=== PATIENT | female | born 1980 | race Two or more races ===

== ENCOUNTER 2023-11-27 20:25 | Inpatient (IN) | payer BC, MEDICAID ==
[~2023-11-27] VITALS: Ht 157.5 cm; Wt 87.5 kg
[~2023-11-27 20:25] MED LIST: CEPH500C2 PO
[2023-11-27] MEDS ORDERED: BUPIVACAINE 0.5 % PF 150 MG/30 ML VIAL ONE (21:00)
[2023-11-27] MEDS ORDERED: MIDAZOLAM HCL 2 MG/2ML VIAL ONE (21:00)
[2023-11-27] MEDS ORDERED: FENTANYL PF 100MCG/2ML AMPUL ONE ×2 (21:00→22:59)
[2023-11-27 21:06] LABS: BASOPHILS % (AUTO) 0.3 % (0.0-2.0); EOSINOPHILS # (AUTO) 0.2 K/uL (0.0-0.7); HEMATOCRIT 31 % (33-45); HEMOGLOBIN 10.5 g/dL (11.5-14.8); LYMPHOCYTES # (AUTO) 2.2 K/uL (0.8-4.8); MEAN CORPUSCULAR HEMOGLOBIN 28 PG (26.0-33.0); MEAN CORPUSCULAR HGB CONC 34 g/dl (31.0-36.0); MEAN CORPUSCULAR VOLUME 84 fL (82-100); MONOCYTES # (AUTO) 0.5 K/uL (0.1-1.30); MONOCYTES % (AUTO) 5.9 % (2.0-12.0); NEUTROPHILS # (AUTO) 5.3 K/uL (1.8-8.9); NEUTROPHILS % (AUTO) 64.8 % (43.0-81.0); PLATELET COUNT (AUTO) 305 K/uL (150-450); RED BLOOD CELL COUNT(AUTO) 3.71 MIL/uL (4.0-5.2); RED CELL DISTRIBUTION WIDTH 14.2 % (11.5-15.0); WHITE BLOOD COUNT (AUTO) 8.2 K/uL (4.3-11.0)
[2023-11-27 21:14] LABS: CALCIUM, SERUM 9.4 mg/dL (8.5-10.1); CREATININE 0.6 mg/dL (0.6-1.3); POTASSIUM 3.3 mmol/L (3.5-5.1)
[2023-11-27 21:18] LABS: INR 0.92 (0.91-1.10); PARTIAL THROMBOPLASTIN TIME 28.1 SEC (24.3-34.3); PROTHROMBIN TIME 9.8 SECS (9.2-11.1)
[2023-11-27] MEDS: IV NS 0.9% 1,000 ML BAG IV ONE (21:18)
[2023-11-27] MEDS ORDERED: FAMOTIDINE/PF INJ 20 MG/2 ML VIAL IV ONE (21:19)
[2023-11-27 21:27] LABS: BILIRUBIN,DIRECT 0.1 mg/dL (0.0-0.2); BILIRUBIN,TOTAL 0.2 mg/dL (0.2-1.0)
[2023-11-27] MEDS ORDERED: SODIUM BICARBONATE 5 MEQ/10 ML DISP.SYRIN IV ONE (21:28)
[2023-11-27] MEDS ORDERED: SODIUM BICARBONATE 5 ML VIAL ONE (21:30)
[2023-11-27] MEDS: SODIUM BICARBONATE 650 MG TABLET PO SCH (21:35)
[2023-11-27] MEDS: FAMOTIDINE/PF INJ 20 MG/2 ML VIAL IV ONE (21:35)
[2023-11-27] MEDS: METRONIDAZOLE 0.75% GEL 70 GM TUBE VG SCH (21:35)
[2023-11-27] MEDS: SODIUM BICARBONATE 5 ML VIAL IV ONE (21:35)
[2023-11-27] MEDS ORDERED: HEMOSTATIC MATRIX 8 ML 1 EACH PAD MC ONE (22:18)
[2023-11-27] MEDS ORDERED: BUPIVACAINE 0.25% 75 MG/30 ML VIAL ONE (22:44)
[2023-11-27 23:50] VITALS: BP 129/100; TEMP 98.2; O2SAT 100
[2023-11-28] VITALS (7 sets, daily range): BP systolic 111–128; BP diastolic 73–89; TEMP 98.2–98.6; O2SAT 95–100
[2023-11-28] MEDS ORDERED: ACETAMINOPHEN W/ CODEINE#3 1 EA TABLET PO PRN
[2023-11-28] MEDS ORDERED: MORPHINE SULFATE INJ 4 MG/ML DISP.SYRIN IM PRN (01:00)
[2023-11-28] MEDS: IV NS 0.9% 1,000 ML BAG IV PRN (01:19)
[2023-11-28] MEDS: GUAIFENESIN/CODEINE 10 ML UDC PO PRN (01:19)
[2023-11-28 06:36] LABS: BASOPHILS % (AUTO) 0.2 % (0.0-2.0); HEMATOCRIT 31 % (33-45); HEMOGLOBIN 10.4 g/dL (11.5-14.8); LYMPHOCYTES # (AUTO) 1.1 K/uL (0.8-4.8); LYMPHOCYTES % (AUTO) 10.1 % (20.0-44.0); MEAN CORPUSCULAR HEMOGLOBIN 28 PG (26.0-33.0); MEAN CORPUSCULAR HGB CONC 34 g/dl (31.0-36.0); MEAN CORPUSCULAR VOLUME 83 fL (82-100); MONOCYTES # (AUTO) 0.3 K/uL (0.1-1.30); MONOCYTES % (AUTO) 2.5 % (2.0-12.0); NEUTROPHILS # (AUTO) 9.8 K/uL (1.8-8.9); NEUTROPHILS % (AUTO) 87.2 % (43.0-81.0); PLATELET COUNT (AUTO) 276 K/uL (150-450); RED BLOOD CELL COUNT(AUTO) 3.69 MIL/uL (4.0-5.2); RED CELL DISTRIBUTION WIDTH 14.2 % (11.5-15.0); WHITE BLOOD COUNT (AUTO) 11.3 K/uL (4.3-11.0)
[2023-11-28 06:51] LABS: CALCIUM, SERUM 7.6 mg/dL (8.5-10.1); CREATININE 0.5 mg/dL (0.6-1.3); MAGNESIUM 1.9 mg/dL (1.8-2.4); PHOSPHORUS 3.3 mg/dL (2.5-4.9); POTASSIUM 4.5 mmol/L (3.5-5.1)
[2023-11-28] MEDS: CEFAZOLIN 1 GM in IV D5W 50 ML IV SCH (08:15)
[2023-11-28] MEDS ORDERED: IBUP-1957 PO (08:16)
[2023-11-28] MEDS ORDERED: ERGO500093 PO (08:16)
[2023-11-28] MEDS: DOCUSATE SODIUM 100 MG CAPSULE PO SCH (08:43)
== END 2023-11-28 11:30 | disposition home or self-care (01) | DRG 794 ==
LOC: ER 20:40 → MED 21:40
PROVIDERS: ADMIT Obstetrics & Gynecology; ATTEND Obstetrics & Gynecology
PROC: 0KQM0ZZ Repair Perineum Muscle, Open Approach (ICD-10-PCS; principal; 2023-11-27)
PROC: 30233N1 Transfusion of Nonautologous Red Blood Cells into Peripheral Vein, Percutaneous Approach (ICD-10-PCS; 2023-11-27)
DX: N99.820 Postprocedural hemorrhage of a genitourinary system organ or structure following a genitourinary system procedure (principal); S31.41XA Laceration without foreign body of vagina and vulva, initial encounter; Y83.8 Other surgical procedures as the cause of abnormal reaction of the patient, or of later complication, without mention of misadventure at the time of the procedure; Y76.8 Miscellaneous obstetric and gynecological devices associated with adverse incidents, not elsewhere classified; Y92.009 Unspecified place in unspecified non-institutional (private) residence as the place of occurrence of the external cause
CPT/HCPCS: 36415; 80048-TC; 80076-TC; 83735-TC; 84100-TC; 84702-TC; 85025-TC; 85730-TC; 86850-TC; A4223; G0378; J0690; J2250; J2704; J2765; J3010; J3490; J7030; J7040; J7060; P9016